=== PATIENT | female | born 1990 | race Two or more races ===

== ENCOUNTER 2025-10-25 11:57 | Emergency (ER) | payer SELFPAY ==
[2025-10-25 11:59] VITALS: BMI 33.3
[2025-10-25 12:13] VITALS: BP 126/76; PULSE 92; RESP 17; TEMP 36.9; O2SAT 96
--- NOTE | 2025-10-25 12:18 | EDNOTE_ITS ---
<Statement entered by Kimberly Romano MD - 10/25/25 17:49> As co-signing physician, I was present and available for consult prn. I concur with the plan and care as documented by the midlevel provider. ED Headache RME/HPI General Chief Complaint: Nausea/Vomiting/Diarrhea Stated Complaint: NAUSEA X4 DAYS, HEADACHE X3 DAYS, DIZZY X1 DAY Time Seen by Provider: 10/25/25 12:13 Arrival date/time: 10/25/25 11:57 RME / HPI RME / HPI Narrative: 35-year-old healthy female presents to the ER complaining of gradual onset headache which goes to her temples bilaterally similar nature to prior headaches however unrelieved with Tylenol associate with dizziness which she describes as lightheadedness. Denies any vision changes, numbness, tingling, weakness, speech changes, vomiting, fever Related Data Previous Rx's ?Medication ?Instructions ?Recorded ibuprofen 600 mg tablet 600 mg PO Q8H PRN pain #30 t abs 04/10/21 bacitracin 500 unit/gram topical 1 applic topical Q8H #28 grams 05/04/23 ointment loperamide 2 mg capsule (Imodium 2 mg PO Q6H PRN loose stool #14 09/20/23 A-D) caps ondansetron 4 mg disintegrating 4 mg PO Q8H PRN nausea and 09/20/23 tablet vomiting #10 tabs Allergies Allergy/AdvReac Type Severity Reaction Status Date / Time No Known Allergies Allergy Verified 10/25/25 12:01 ED Exam Narrative Physical exam: Constitutional: Patient alert and oriented. Well appearing. No acute distress. Not toxic appearing. Head: Normocephalic, atraumatic. Eyes: Periorbital regions bilaterally normal to inspection. Conjunctiva clear bilaterally. Sclera anicteric bilaterally. Pupils equal, round, reactive to light bilaterally. Extraocular movements intact bilaterally. Mouth/Throat: Mucous membranes moist. No stridor or muffled voice. No trismus. Handling secretions without difficulty. Airway widely patent. Neck: Supple. Trachea midline. No JVD. No nuchal rigidity. Normal range of motion. Respiratory: Normal effort. No accessory muscle use or respiratory distress. Lungs clear to auscultation bilaterally without rhonchi, wheezes, or crackles. Cardiovascular: RRR. Normal S1/S2. No murmurs or rubs. Radial pulses intact bilaterally. Abdomen: Soft. Non-distended. Non-tender throughout. No pulsatile mass. No guarding or rebound. Negative Mccormick?s sign. Negative McBurney?s point tenderness. Negative Rovsing?s. Back: No midline tenderness or step-offs. No CVA tenderness to palpation bilaterally. Upper Extremities: No gross deformities. Lower Extremities: No gross deformities. No edema or calf tenderness. Neuro: Speech normal. No gross motor or sensory deficits to upper or lower extremities bilaterally. GCS 15. CN II?XII grossly intact. Skin: Warm, dry, normal color. Psych: Normal affect. Cooperative. Normal insight. Course Quality Measures none Orders Category Date Time Status EKG (ED ONLY) *Do not use* NOW Care 10/25/25 12:19 Completed EKG (ED Only) Stat Exams 10/25/25 12:19 Draft HCG Qualitative,Urine Stat Lab 10/25/25 13:05 Completed Urinalysis Stat Lab 10/25/25 13:05 Completed DiphenhydrAMINE [Benadryl] Med 10/25/25 12:18 Discontinued 25 mg PO X1 ONE Ketorolac Inj [Toradol Inj] Med 10/25/25 12:18 Discontinued 30 mg IM X1 ONE Prochlorperazine Inj [Compazine Inj] Med 10/25/25 12:18 Discontinued 10 mg IM X1 ONE Vital Signs Vital signs: Vital Signs Temperature 98.5 F 10/25/25 12:13 Pulse Rate 92 10/25/25 12:13 Respiratory Rate 17 10/25/25 12:13 Blood Pressure 126/76 10/25/25 12:13 Pulse Oximetry (%) 96 10/25/25 12:13 Oxygen Delivery Method Room Air 10/25/25 12:13 Headache MDM Narrative MDM Narrative:: Patient presents with headache. Serious causes including intracranial hemorrhage, mass lesion with midline shift or herniation, ischemic stroke with focal deficits, meningitis/encephalitis, and giant cell arteritis were considered and are felt unlikely based on today?s history, exam, and overall presentation. Neurologic exam is non-focal. No meningismus is present. CT head was considered but not obtained, as the likelihood of acute findings is very low and the risks of unnecessary radiation outweigh the benefits. This was a shared decision with the patient, who expressed understanding and agreement with the plan to defer imaging.Patient was administered migraine cocktail and subsequently eloped Patient data External records reviewed:: [facility] previous records Clinical information provided by:: patient Social determinants that could affect healthcare access:: none Patient has the following chronic illnesses:: As noted How is presenting disease/condition affected by chronic disease/condition?: uneffected by Evaluation data The following diagnostics were reviewed and interpreted by me:: other (specify) Lab and/or radiology exams considered but not ordered:: Additional Labs and radiology considered, but not ordered as they were not clinically indicated at this time. Interpretation Summary: Urine contaminated, hCG negative EKG notes sinus rhythm [address] abnormalities without ST elevation Medications / Prescriptions Medications or Prescriptions considered but not ordered:: I ordered medications based on the patient?s clinical needs and assessment, as documented in the chart. For medications not prescribed, they were not indicated for the patient's current condition, and I determined they were unnecessary at this time to avoid potential risks or complications. Medication administrations:: Medication Administration History Discontinued Medications Diphenhydramine HCl (Diphenhydramine 25 Mg Capsule) 25 mg PO X1 ONE Stop: 10/25/25 12:19 Last Admin: 10/25/25 13:01 Dose: 25 mg Documented By: Ketorolac Tromethamine (Ketorolac Inj 30 Mg/Ml Vial) 30 mg IM X1 ONE Stop: 10/25/25 12:19 Last Admin: 10/25/25 13:02 Dose: 30 mg Documented By: Prochlorperazine Edisylate (Prochlorperazine Inj 5 Mg/Ml Vial 2 Ml) 10 mg IM X1 ONE; Protocol Stop: 10/25/25 12:19 Last Admin: 10/25/25 13:02 Dose: 10 mg Documented By: As noted Consultations Consultation(s) initiated? (list below): No Diagnosis Differential diagnosis headache: migraine and other Most likely diagnosis given after review of the tests above:: As noted Admission Indicated Admission indicated?: not indicated Admission Request Was there a request for admission?: No Disposition Plan Disposition Plan: other (specify) Discharge Plan Plan Patient Disposition: Elopement Prescriptions/Referrals Prescriptions/Med Rec: No Action ibuprofen 600 mg tablet 600 mg PO Q8H PRN (Reason: pain) Qty: 30 0RF bacitracin 500 unit/gram ointment 1 applic topical Q8H Qty: 28 0RF loperamide [Imodium A-D] 2 mg capsule 2 mg PO Q6H PRN (Reason: loose stool) Qty: 14 0RF ondansetron 4 mg tablet,disintegrating 4 mg PO Q8H PRN (Reason: nausea and vomiting) Qty: 10 0RF Referrals: No Primary/Family,Physician [Primary Care Provider] - In 1 week Problem List Clinical Impression: Headache Patient/Caregiver Discharge Instructions Print Language: Vietnamese
--- NOTE | 2025-10-25 12:19 | EKG_ITS ---
[facility] Test Date: 2025-10-25 Pat Name: DONALD OCASIO Department: Room: - Gender: Female [employer]: : 1990 Requested By: Jagdeep Geronimo Order Number: [id number] Reading MD: Jagdeep Geronimo Measurements Intervals [place] Rate: 90 P: 35 NE: 176 QRS: -35 QRSD: 94 T: -24 QT: 304 QTc: 372 Interpretive Statements SINUS RHYTHM LEFT AXIS DEVIATION [QRS AXIS < -30] NONSPECIFIC ST & T-WAVE ABNORMALITY No previous ECG available for comparison /[id number]/[email or web address]/[id number]
[2025-10-25] MEDS: PROCHLORPERAZINE INJ 5 MG/ML VIAL 2 ML 10 MG IM (13:02)
[2025-10-25] MEDS: KETOROLAC INJ 30 MG/ML VIAL IM (13:02)
[2025-10-25 13:39] LABS: Collection Type, Urine Voided
--- NOTE | 2025-10-25 13:53 | PC.NURSE ---
@1325 - PT CALLED FROM ED LOBBY & ED MAIN ENTRANCE AT THIS TIME. NO ANSWER. @1343 - PT CALLED FROM ED LOBBY & ED MAIN ENTRANCE AT THIS TIME FOR 2ND CALL. NO ANSWER. @1352 - PT CALLED FROM ED LOBBY & ED MAIN ENTRANCE AT THIS TIME FOR LAST CALL. NO ANSWER. PT ELOPED.
[2025-10-25 14:00] LABS: HCG Qualitative,Urine Negative
[2025-10-25 14:07] LABS: Bilirubin,Urine Negative (Negative); Blood,Urine Negative (Negative); Clarity,Urine Turbid (Clear/Hazy); Color,Urine Yellow (Lt Yel-Yel); Glucose, Urine Negative (Negative); Ketones,Urine 2+ (Negative); Leukocyte Esterase,Urine Negative (Negative); Nitrite,Urine Negative (Negative); PH,Urine 6.0 (5.0-7.0); Protein,Urine Trace (Neg - Trace); RBC,Urine 5 /hpf (0-3); Specific Gravity,Urine 1.035 (1.001-1.035); Squamous Epithelial Cell,Urine 10 /hpf (0-5); Urobilinogen,Urine Negative mg/dL (0.0-1.0); WBC,Urine 1 /hpf (0-5)
== END 2025-10-25 13:54 | disposition left against medical advice (07) ==
PROVIDERS: Physician Assistant; Emergency Provider Emergency Medicine
DX: R51.9 Headache, unspecified (principal); R94.31 Abnormal electrocardiogram [ECG] [EKG]; Z53.29 Procedure and treatment not carried out because of patient's decision for other reasons
CPT/HCPCS: 80053; 81001; 81025; 85025; 93005; 96372; 99283; J0780; J1885; A9270